=== PATIENT | male | born 1990 | race African-American/Black ===

== ENCOUNTER 2021-09-18 11:32 | Emergency (ER) | payer SELFPAY ==
[~2021-09-18] VITALS: Ht 185.4 cm; Wt 80.7 kg
[2021-09-18] MEDS ORDERED: DICYCLOMINE HCL 20 MG TAB PO ONE (11:45)
[2021-09-18] MEDS ORDERED: IBUPROFEN 600 MG TAB PO STA (11:56)
[2021-09-18] MEDS ORDERED: ANAPROX DS550 MG PEG (13:10)
== END 2021-09-18 13:21 | disposition home or self-care (01) ==
LOC: ER 11:38
DX: M25.571 Pain in right ankle and joints of right foot (principal); M19.071 Primary osteoarthritis, right ankle and foot
CPT/HCPCS: 99283